=== PATIENT | male | born 1960 | race Caucasian/White ===

== ENCOUNTER → 2017-06-26 | Outpatient (CLI) | payer BC ==
[~2017-06-26] MED LIST: ASPI81TA28 PO; CLR10 PO; IPRA0.037; NADO40TA20 PO; VITBC PO
--- NOTE | 2017-06-26 11:32 | DIAGNOSTIC IMAGING REPORT ---
CHEST 2 VIEWS ROUTINE CLINICAL HISTORY: Atypical chest pain. Shortness of breath. COMPARISON STUDY: 04/08/2013 FINDINGS: The cardiac and mediastinal contours are normal. There is no evidence of focal pulmonary consolidation. There is no evidence of failure. No pleural effusions are visualized.[ There is a subtle 8 mm opacity at the left apex, overlying the clavicle and left first rib. While nonspecific, one would favor this representing a summation or postinflammatory density. A three-month follow-up chest x-ray with an apical lordotic view is recommended. IMPRESSION: 8 mm opacity at the left lung apex, likely representing a summation or postinflammatory density. A three-month follow-up chest x-ray with an apical lordotic view is recommended. Electronically signed by: Mario Merrill M.D. 06/26/2017 11:31 AM Dictated Date/Time: 06/26/2017 11:28 AM
== END | disposition home or self-care (01) ==
LOC: C.RADBC 11:13
PROVIDERS: ATTEND Internal Medicine Geriatric Medicine
DX: I47.1 Supraventricular tachycardia (principal); R06.02 Shortness of breath; R07.9 Chest pain, unspecified; Z86.79 Personal history of other diseases of the circulatory system; R91.8 Other nonspecific abnormal finding of lung field

== ENCOUNTER → 2017-09-03 | Outpatient (CLI) | payer OTHER ==
--- NOTE | 2017-09-03 09:04 | DIAGNOSTIC IMAGING REPORT ---
ABDOMEN FOR HERNIA CLINICAL HISTORY: Right inguinal hernia. COMPARISON STUDY: No previous studies for comparison. FINDINGS: Sonography of the right inguinal region demonstrated a reducible fat-containing right inguinal hernia. IMPRESSION: Reducible fat-containing right inguinal hernia. Electronically signed by: Jun Mcmanus M.D. 09/03/2017 9:03 AM Dictated Date/Time: 09/03/2017 9:03 AM
--- NOTE | 2017-09-03 09:06 | DIAGNOSTIC IMAGING REPORT ---
ULTRASOUND TESTES AND SCROTUM CLINICAL HISTORY: Testicular pain. COMPARISON STUDY: No priors. TECHNIQUE: Real-time, grayscale, and color Doppler sonography of the testes and scrotum is performed. Images are reviewed in the transverse and longitudinal planes. FINDINGS: The testes are normal in size and homogeneous in echotexture. The right testis measures 5.6 x 2.1 x 3.4 cm and the left testis measures 5.5 x 2.1 x 3.1 cm. No intratesticular mass is seen. Testicular blood flow is normal and symmetric. Normal Doppler waveforms are identified in both testes. The epididymal heads are normal in appearance. The right epididymal head measures 1.1 cm in length and the left epididymal head measures 1.0 cm in length. No varicocele or hydrocele is seen. IMPRESSION: Unremarkable sonographic assessment of the testes and scrotum. Electronically signed by: Torsten Lewis M.D. 09/03/2017 9:04 AM Dictated Date/Time: 09/03/2017 9:03 AM
== END | disposition home or self-care (01) ==
LOC: C.ULTRBC 08:23
PROVIDERS: ATTEND Internal Medicine Geriatric Medicine
DX: K40.90 Unilateral inguinal hernia, without obstruction or gangrene, not specified as recurrent (principal); N50.819 Testicular pain, unspecified

== ENCOUNTER → 2017-11-30 | Outpatient (CLI) | payer OTHER ==
--- NOTE | 2017-11-30 11:16 | DIAGNOSTIC IMAGING REPORT ---
CHEST-PA, LAT, APICAL LORDOTIC HISTORY: Abnormal chest x-ray. R93.8 Abnormal finding on imaging COMPARISON: Chest 06/26/2017. FINDINGS: The left apical nodular density seen on the prior study is no longer visualized. No focal lung consolidations to suggest pneumonia. No evidence for pulmonary edema. The heart is normal in size. No pleural effusions. No pneumothorax. IMPRESSION: The left apical nodular density seen on the prior study is no longer visualized. Electronically signed by: Baldev Blake M.D. 11/30/2017 11:14 AM Dictated Date/Time: 11/30/2017 11:12 AM
== END | disposition home or self-care (01) ==
LOC: C.RADBC 10:40
PROVIDERS: ATTEND Internal Medicine Geriatric Medicine
DX: R93.8 Abnormal findings on diagnostic imaging of other specified body structures (principal)

== ENCOUNTER → 2018-02-21 | Day surgery (SDC) | payer OTHER ==
[2018-02-12 10:47] VITALS: Ht 177.8 cm; Wt 86.4 kg
--- NOTE | 2018-02-20 14:16 | History and Physical: Surg Cnt ---
History & Physical Date Feb 20, 2018. Chief Complaint sinus infections History of Present Illness The patient is a 57 year old male with complaints of chronic sinusitis Additional History Hepatic Disease: No Endocrine Disorder: No Kidney Disease: No Hypertension: Yes Heart Disease: No Bleeding Tendencies: No Infectious Diseases: No Allergies Coded Allergies: No Known Allergies (Verified , 02/12/18) Home Medications Scheduled Aspirin (Aspirin Chewable), 81 MG PO QAM B-Complex Vitamins (Vitamin B Complex), 1 TAB PO DAILY Cholecalciferol (Vitamin D), 1 CAP PO DAILY Ipratropium [place] (Nasal) (Ipratropium [place]), 1 SPRAY STEPHANI QAM Loratadine (Claritin), 10 MG PO QAM Losartan Potassium (Cozaar), 50 MG PO QAM Meloxicam (Mobic), 1-2 TAB PO QAM Nadolol (Corgard), 1.5 TAB PO QAM Pravastatin (Pravachol ), 20 MG PO QPM [Vitamin C], 1 TAB PO DAILY Scheduled PRN Clonazepam (Klonopin), 0.5 MG PO DAILY PRN for PRN Physical Examination Skin: warm/dry, no rash Eyes: normal inspection, EOMI, sclerae normal ENT: normal ENT inspection, pharynx normal Head: normocephalic, atraumatic Neck: supple, no adenopathy, trachea midline Respiratory/Chest: lungs clear, normal breath sounds, no respiratory distress Cardiovascular: regular rate, rhythm, no edema, no murmur Abdomen / GI: normal bowel sounds, non tender Back: normal inspection Extremities: normal inspection, normal range of motion Neurologic/Psych: no motor/sensory deficits, alert, normal reflexes, oriented x 3 Diagnosis chronic sinusitis Plan of Treatment endoscopic sinus surgery
[~2018-02-21] VITALS: Ht 177.8 cm; Wt 86.4 kg
[~2018-02-21] MED LIST changes: +ASPCH81X PO; -ASPI81TA28 PO; +ATROPINE SULFATE 0.1 MG/ML 5ML SYR IV PRN; +B-COTAB18 PO; +CEFAZOLIN 2000MG IV PUSH 15 ML IV SCH; +CHOL200010 PO; +DEXAMETHASONE SOD INJ 4 MG/ML VIAL ONE; +EpHEDrine SULFATE INJ 50 MG/ML AMP IV PRN; +EpHEDrine SULFATE INJ 50 MG/ML AMP ONE; +EpINEphrine INJ 1MG/ML AMP 1 MG/ML AMP ONE; +FENTANYL CITRATE INJ 50 MCG/1 ML 2 ML VIAL IV PRN; +FENTANYL CITRATE INJ 50 MCG/1 ML 2 ML VIAL ONE; +GELATIN SPONGE 12-7MM ONE; -IPRA0.037; +IPRA0.06 NAE; +KLN/5 PO; +LACTATED RINGER'S 1000ML 1,000 ML IV SCH; +LIDO 2%/EPINEPHRINE 1:100000 20 ML VIAL ONE; +LIDOCAINE 4% MPF SOAK 5 ML = 1 DOSE ONE; +LIDOCAINE HCL 2% 2 ML VIAL (20MG/ML) ONE; +LOSA50TA6 PO; +MELO7.5T5 PO; +MIDAZOLAM HCL 1 MG/ML 2ML VIAL ONE; +NADO40TA PO; -NADO40TA20 PO; +ONDANSETRON INJ 2 MG/ML 2 ML VIAL IV PRN; +ONDANSETRON INJ 2 MG/ML 2 ML VIAL ONE; +OXYC-57 PO; +OXYCODONE/ACETAMINOPHEN 5-325 TAB PO PRN; +PRAV20TA PO; +PROPOFOL IV EMULSION 10 MG/ML 20 ML VIAL ONE; +SODIUM CHLORIDE 0.9% 1000ML 1,000 ML IV SCH; +VITAMIN C PO; -VITBC PO
--- NOTE | 2018-02-21 09:01 | History & Physical Bridge Note ---
H&P Re-Evaluation Bridge Note: I have examined the patient, reviewed the History & Physical and in the interval since the performance of the History & Physical I have noted the following changes of clinical significance: No changes noted
--- NOTE | 2018-02-21 11:57 | [facility] Post Operative Brief Note ---
Immediate Operative Summary Operative Date Feb 21, 2018. Pre-Operative Diagnosis Chronic sinusitis Post-Operative Diagnosis same as preop Procedure(s) Performed Endoscopic Sinus Surgery to include left and right frontal, left and right maxillary, and left and right total ethmoidectomies Surgeon Dr. Hernandez Ladle Builder Surgeon(s) None Estimated Blood Loss 100 mL Findings Consistent with Post-Op Diagnosis Specimens None Drains None Anesthesia Type General Complication(s) none Disposition Accompanied Pt To Recover: yes Disposition: Recovery Room / PACU Overlapping Procedure I was present for: the critical portions of procedure. I was immediately available: during the entire case
--- NOTE | 2018-02-21 11:59 | Discharge Instructions-SurgCtr ---
Discharge Instructions Date of Service Feb 21, 2018. Visit Reason for Visit: Chronic Sinusitis Discharge Discharge Diagnosis / Problem: same Discharge Goals Goal(s): Improve function, Improve disease control, Therapeutic intervention Activity Recommendations Activity Limitations: per Instructions/Follow-up section Anesthesia . Post Anesthesia Instructions: If you have had General Anesthesia or IV Sedation: * Do not drive today. * Resume driving when surgeon permits. * Do not make important decisions or sign legal documents today. * Call surgeon for: 1. Temperature elevations greater than 101 degrees F. 2. Uncontrollable pain. 3. Excessive bleeding. 4. Persistent nausea and vomiting. 5. Medication intolerance (nausea, vomiting or rash). * For nausea and vomiting use only clear liquids such as: tea, soda, bouillon until nausea subsides, then gradually increase diet as tolerated. * If you have any concerns or questions, call your surgeon's office. If physician is unavailable and it is an emergency, call 911 or go to the nearest emergency room. . Instructions / Follow-Up Instructions / Follow-Up ACTIVITY RECOMMENDATIONS: * Being up and around is good, but no strenuous activity, heavy lifting or physical exertion for one week. * Keep your head elevated 30 degrees when lying down or sleeping. * Do not blow your nose for 48 hours, sniff back instead. * Avoid hot showers. OVER THE COUNTER MEDICATIONS: * You may use Tylenol * Avoid aspirin or aspirin containing products, e.g. as they may increase bleeding. SPECIAL CARE INSTRUCTIONS: * Expect to have bloody drainage from your nose and/or down your throat for one to three days. Change drip pad as needed. * Begin irrigating your nose with saline solution today, at least six to ten times per day and sniff back to help remove old clots or crust. * You may experience nasal and facial congestion, pain and pressure, this is normal. * Please call with any significant and/or progressive pain, redness, swelling around the eyes, visual changes, fever of 101.5 degrees F, active bleeding or any problems or concerns. * If active bleeding occurs, spray the nose three times at one minute intervals with Afrin spray and call or cell phone: . If unable to reach the doctor, go to the nearest Emergency Department. Special Diet: * Avoid extremely hot fluids. FOLLOW UP VISIT: Follow-up Visit with Dr. Hernandez If not already scheduled, please call to schedule. Diet Recommendations Home Diet: no limitations Procedures Procedures Performed: Endoscopic Sinus Surgery to include left and right frontal, left and right maxillary, and left and right total ethmoidectomies Pending Studies Studies pending at discharge: no Medical Emergencies . Who to Call and When: Medical Emergencies: If at any time you feel your situation is an emergency, please call 911 immediately. . Non-Emergent Contact Non-Emergency issues call your: Primary Care Provider . . "Provider Documentation" section prepared by Moriah Hernandez. . [place] Drug Monitoring Program Search Results: no issues identified
--- NOTE | 2018-02-21 12:43 | Anesthesia Progress Nt - [facility] ---
Anesthesia Post Op Note Date & Time Feb 21, 2018 at 12:43 Vital Signs Pain Intensity: 0 Vital Signs Past 12 Hours Date Time Temp Pulse Resp B/P (MAP) Pulse Ox O2 Delivery O2 Flow Rate FiO2 02/21/18 12:31 36.4 02/21/18 12:30 127/90 (102) 02/21/18 12:27 69 16 94 02/21/18 12:27 70 16 02/21/18 12:25 126/87 (93) 02/21/18 12:22 68 18 02/21/18 12:22 67 18 98 02/21/18 12:21 Room Air 02/21/18 12:20 128/77 (95) 02/21/18 12:17 63 17 97 02/21/18 12:17 63 17 02/21/18 12:15 110/68 (75) 02/21/18 12:12 61 14 02/21/18 12:12 61 14 97 02/21/18 12:10 104/65 (74) 02/21/18 12:07 62 14 98 02/21/18 12:07 62 14 02/21/18 12:05 105/65 (76) 02/21/18 12:02 64 15 97 02/21/18 12:02 64 15 02/21/18 12:00 106/67 (74) 02/21/18 11:59 101/65 (75) 02/21/18 11:57 36.1 66 12 101/65 96 Humidified Oxygen 5 Diffusion Mask 02/21/18 09:48 36.6 55 14 126/88 (101) 97 Room Air Notes Mental Status: alert / awake / arousable, participated in evaluation Pt Amnestic to Procedure: Yes Nausea / Vomiting: adequately controlled Pain: adequately controlled Airway Patency, RR, SpO2: stable & adequate BP & HR: stable & adequate Hydration State: stable & adequate Anesthetic Complications: no major complications apparent
[2018-02-21 13:14] VITALS: TEMP 36.5
[2018-02-21 13:49] VITALS: BP 119/77; PULSE 64; O2SAT 97
--- NOTE | 2018-02-21 17:53 | OPERATIVE REPORT ---
DATE OF OPERATION: 02/21/2018 PREOPERATIVE DIAGNOSIS: Chronic sinusitis. HISTORY: This 57-year-old gentleman underwent endoscopic sinus surgery [address] Sherman, developed recurrent chronic sinusitis which has become progressively worse over the last several years, found to have pansinusitis on CT scan. PROCEDURE: The patient brought to the operating room and placed in supine position. General anesthesia was induced using the LMA. He was prepped and draped in the usual sterile manner for sinus surgery. The BrainLAB device was calibrated and used for the entire procedure. The adhesions lateralized both middle turbinates blocking the middle meatus and the maxillary sinuses. The right maxillary sinus was cannulated with guidewire and dilated using 6 mm balloon as was the left maxillary sinus. The right nasal frontal duct was cannulated with guidewire and dilated using the 6 mm balloon with BrainLAB computer guidance. The guidewire was left in place as a marker as the catheter was withdrawn. Frontal sinusotomy was performed by coupling the shaver with the BrainLAB device, removing the anterior wall and the posterior wall of the agger nasi cell, opening up the nasofrontal duct. At this point, total ethmoidectomy was performed lysing the adhesions from the residual middle turbinate laterally opening up the anterior ethmoids, and then further cutting the adhesions posteriorly to open up the posterior ethmoid. The BrainLAB device was used to delineate the skull base and lamina papyracea. These structures were followed anteriorly exonerating all the posterior and all the anterior ethmoid air cells which were filled with polyps and adhesions. This was continued anteriorly so that all the ethmoids were exonerated up to the previously dilated nasofrontal duct. The maxillary sinus was opened and irrigated clean with saline. The left frontal sinusotomy, total ethmoidectomy, and maxillary sinus antrostomy was performed in a similar manner. The Contour stents were placed in the nasofrontal duct area and the Propel stents were placed in the middle meatus area on both sides. The patient tolerated the procedure well and was taken to recovery area in satisfactory condition. I attest to the content of the Intraoperative Record and any orders documented therein. Any exception s are noted below.
== END | disposition home or self-care (01) ==
LOC: X.SURG 09:02
PROVIDERS: ATTEND Otolaryngology
DX: J32.9 Chronic sinusitis, unspecified (principal); I10 Essential (primary) hypertension; E78.5 Hyperlipidemia, unspecified; I48.91 Unspecified atrial fibrillation; I47.1 Supraventricular tachycardia; Z79.82 Long term (current) use of aspirin
CPT/HCPCS: 31253; 31256; 61782; S1090

== ENCOUNTER 2025-07-11 21:55 | Inpatient (IN) ==
[2025-07-11] MEDS: SODIUM CHLORIDE 0.9% 500 ML IV ONE (22:10)
--- NOTE | 2025-07-11 22:17 | Emergency Department Note ---
History of Present Illness General Chief complaint: Arrhythmia/Palpitations Stated complaint: A-FIB History of Present Illness 65-year-old male presents the ER complaining of feeling like he is in A-fib. Last episode was greater than 10 years ago. He is currently on nadolol and follows with Dr. Wallis from [facility] cardiology. Patient states that around 1999 when he was watching the news he felt like the symptoms started. No increased caffeine or alcohol today. No new stressors. Patient denies chest pain, dyspnea, fever, chills, flulike illness. Home Medications Medication Instructions Recorded Confirmed Type aspirin 81 mg tablet,delayed 81 mg PO QAM 06/20/18 07/11/25 History release (Gurjit Low Dose Aspirin) cholecalciferol (vitamin D3) 50 2,000 unit PO QAM 06/20/18 07/11/25 History mcg (2,000 unit) tablet (Vitamin D3) ipratropium bromide 21 mcg (0.03 2 spray intranasal TID 06/20/18 07/11/25 History %) nasal spray loratadine 10 mg tablet 10 mg PO QAM 06/20/18 07/11/25 History nadolol 40 mg tablet 60 mg PO DAILY 06/20/18 07/11/25 History vitamin B complex 1 tab PO QAM 06/20/18 07/11/25 History losartan 50 mg tablet 50 mg PO QAM #90 tabs 03/05/19 07/11/25 Rx coenzyme Q10 100 mg capsule 100 mg PO DAILY 07/11/25 07/11/25 History garlic 1,000 mg capsule 1,000 mg PO DAILY 07/11/25 07/11/25 History icosapent ethyl 0.5 gram capsule 1 g PO BIDM 07/11/25 07/11/25 History meloxicam 7.5 mg tablet 7.5 - 15 mg PO DAILY PRN Severe 07/11/25 07/11/25 History Pain (Scale Score 7-10) rosuvastatin 5 mg tablet 5 mg PO 4XWK 07/11/25 07/11/25 History trazodone 50 mg tablet 75 mg PO HS 07/11/25 07/11/25 History Allergies Allergy/AdvReac Type Severity Reaction Status Date / Time pollen extracts Allergy Mild RUNNY NOSE Verified 07/11/25 22:51 doxycycline AdvReac Severe sun Verified 07/11/25 22:51 sensative amoxicillin AdvReac Intermediate GI SYMPTOMS Verified 07/11/25 22:51 atorvastatin AdvReac Intermediate NAUSEA/VOMI Verified 07/11/25 22:51 TING pravastatin AdvReac Intermediate NAUSEA/VOMI Verified 07/11/25 22:51 TING sulfamethoxazole AdvReac Intermediate GI SYMPTOMS Verified 07/11/25 22:51 trimethoprim AdvReac Intermediate GI SYMPTOMS Verified 07/11/25 22:51 Past Med/Surg History Problem List (Updated 07/11/25 @ 23:51 by Elisa Ovlera PA-C) Atrial fibrillation with rapid ventricular response (Acute) Encounter for pre-operative examination Seasonal allergies Hypertension Afib PSVT (paroxysmal supraventricular tachycardia) High cholesterol Migraine several per month - typical are visual, but occassionally get headache Hx of sinus surgery x2 Hx of fracture left arm as child Hx of wisdom tooth extraction Hx of colonoscopy Inguinal hernia Chronic sinusitis Family History (Updated 06/20/18 @ 08:49 by Dunia Mishra RN) Father Family history of diabetes mellitus Social History Smoking Status: Never smoker Do You Dip or Chew Tobacco: No; Hx Alcohol Use: Yes Hx Substance Use: No Preferred Language: Fijian Communication Ability: Effective Beliefs That Will Affect Care: None Current Living Situation: Spouse Feels Safe at Home: Yes Assistive Devices: Glasses Review of Systems A total of 10 systems reviewed and were otherwise negative Physical Exam Vital Signs Vital Signs - 24 hr 07/11/25 21:58 07/11/25 22:02 07/11/25 22:03 Temperature 36.6 C Temperature Source Temporal Artery Scan Pulse Rate 114 H 113 H 123 H Pulse Rate from SpO2 Sensor Respiratory Rate 18 18 Respiratory Effort / Characteristics Non-Labored Spontaneous Respiratory Depth Normal Respiratory Pattern Regular Blood Pressure 146/89 H 151/107 H Blood Pressure Mean 108 121 Blood Pressure Position Sitting Pulse Oximetry 97 98 Oxygen Delivery Method Room Air Room Air Sepsis Recent Fever Within 48 Hours No Sepsis New/Unexplained Change in Mental Status N/A Sepsis Action Taken by Nursing No Action Required 07/11/25 22:11 07/11/25 22:12 07/11/25 22:15 Temperature Temperature Source Pulse Rate 66 73 81 Pulse Rate from SpO2 Sensor 79 Respiratory Rate 23 21 Respiratory Effort / Characteristics Respiratory Depth Respiratory Pattern Blood Pressure 118/68 118/68 Blood Pressure Mean 84 84 Blood Pressure Position Pulse Oximetry 98 97 Oxygen Delivery Method Room Air Sepsis Recent Fever Within 48 Hours Sepsis New/Unexplained Change in Mental Status Sepsis Action Taken by Nursing 07/11/25 23:00 07/11/25 23:30 Temperature Temperature Source Pulse Rate 74 85 Pulse Rate from SpO2 Sensor Respiratory Rate 16 24 Respiratory Effort / Characteristics Respiratory Depth Respiratory Pattern Blood Pressure 111/69 117/62 Blood Pressure Mean 83 80 Blood Pressure Position Pulse Oximetry 97 96 Oxygen Delivery Method Room Air Room Air Sepsis Recent Fever Within 48 Hours Sepsis New/Unexplained Change in Mental Status Sepsis Action Taken by Nursing VITALS: Vitals are noted on the nurse's note and reviewed by myself. Vital signs tachycardic. GENERAL: Pleasant male with present, in no acute distress, nondiaphoretic, well-developed well-nourished. SKIN: Capillary reflex less than 2 seconds. HEENT: Normocephalic. PERRLA. EOMI. Nares patent. Mucous membranes moist. Neck is supple without nuchal rigidity. HEART: Irregularly irregular rate and rhythm LUNGS: Clear to auscultation bilaterally without wheezes, rales or rhonchi. No retractions or accessory muscle use. ABDOMEN: Positive bowel sounds x 4. Normal tympanic percussion. Soft, nontender, without masses or organomegaly. Borjas sign negative. No guarding or rebound tenderness. no CVA tenderness MUSCULOSKELETAL: No gross musculoskeletal defects. NEURO: Patient was alert and oriented to person place and time. No focal neurological deficits. Course Administered Medications Discontinued Medications Diltiazem HCl (Diltiazem Hcl 5 Mg/Ml 5 Ml Vial) 20 mg IV NOW STA Stop: 07/11/25 22:07 Last Admin: 07/11/25 22:10 Dose: 20 mg Documented By: RACHAEL Co-signed By: GAURANG Sodium Chloride (Nss) 500 mls @ 999 mls/hr IV .Q31M ONE Stop: 07/11/25 22:38 Last Infusion: 07/11/25 22:41 Dose: Infused Documented By: Admin: 07/11/25 22:10 Dose: 999 mls/hr Documented By: RACHAEL Critical Care Time Critical Care Time: Yes Total Critical Care Time: 35 I have personally spent 35 minutes of critical care time in the direct management of this patient. This includes bedside care, interpretation of diagnostic studies, and testing, discussion with consultants, patient, and family members, and other required patient management activities. This 35 minutes is in excess of all separately billable procedures. Medical Decision Making Medical Records Attestation: I reviewed the patient's medical records. Home Medications Current Medication List: was personally reviewed by me Laboratory Data Attestation: I reviewed the patient's lab results. 07/11/25 22:05 07/11/25 22:05 Lab Results 07/11/25 Range/Units 22:05 WBC 9.85 (4.8-10.8) K/ul RBC 4.74 (4.70-6.10) M/uL Hgb 16.0 (14.0-18.0) g/dL Hct 43.3 (42.0-52.0) % MCV 91.4 (80.0-100.0) fL MCH 33.8 (25.0-34.0) pg MCHC 37.0 H (32.0-36.0) g/dL RDW Std Deviation 45.7 (36.4-46.3) fL RDW Coeff of [place]rem[place] 13.4 (11.5-14.5) % Plt Count 220 (130-400) K/uL MPV 10.5 (9.4-12.4) fL Immature Gran % (Auto) 0.4 % Neut % (Auto) 49.0 % Lymph % (Auto) 40.6 % Cooper % (Auto) 7.4 % Eos % (Auto) 2.1 % Baso % (Auto) 0.5 % Neut # (Auto) 4.82 (1.40-6.50) K/uL Lymph # (Auto) 4.00 H (1.20-3.40) K/uL Cooper # (Auto) 0.73 H (0.11-0.59) K/uL Eos # (Auto) 0.21 (0.00-0.50) K/uL Baso # (Auto) 0.05 (0.00-0.20) K/uL Immature Gran # (Auto) 0.04 (0.01-0.20) K/uL PT 10.7 (9.0-12.0) Seconds INR 1.0 (0.9-1.1) APTT 25 (21-31) Seconds PTT Ratio 0.9 Sodium 138 (136-145) mmol/L Potassium 4.3 (3.5-5.1) mmol/L Chloride 104 (98-107) mmol/L Carbon Dioxide 27 (21-32) mmol/L Anion Gap 7 (3-11) BUN 18 (6-23) mg/dl Creatinine 1.17 (0.6-1.4) mg/dl Est Cr Clr Drug Dosing 66.7 ml/min eGFR 70.05 BUN/Creatinine Ratio 15.4 (10-20) Glucose 122 H (70-99(Fasting)) mg/dl Calcium 9.2 (8.6-10.3) mg/dl Magnesium 2.2 (1.7-2.4) mg/dl Total Bilirubin 2.6 H (0.2-1.0) mg/dl AST 33 (13-39) U/L ALT 31 (7-52) U/L Alkaline Phosphatase 63 (34-104) U/L Troponin I High Sens 4.9 (0-20) pg/ml Total Protein 7.3 (6.0-8.3) gm/dl Albumin 4.7 (3.4-5.0) gm/dl Globulin 2.6 (2.5-4.0) gm/dl Albumin/Globulin Ratio 1.8 (0.9-2) TSH 3.824 (0.300-4.500) uIu/ml Imaging Data Attestation: I personally reviewed and interpreted this imaging study as follows: MDM Narrative Prior records/ancillary studies reviewed. Triage Nursing notes reviewed. Additional history obtained from family. The patient's history was concerning for palpitations. Differential diagnosis: Etiologies such as premature contractions, electrolyte abnormality, cardiac dysrhythmia, thyroid dysfunction, pulmonary embolism, infection, gastrointestinal, as well as others were entertained. Physical examination: Benign as above. ER treatment provided: Cardizem, IV fluids On reassessment the patient felt better. Diagnostic interpretation by me: An order was placed for continuous cardiac monitoring. The monitor shows a rate of 60-150 with a A-fib rhythm per my interpretation. The electrocardiogram was ordered for palpitaions ECG: Ordered for tachycardia EKG: Irregularly irregular with no acute ST-T wave changes, rate 118. Impression A-fib RVR independently interpreted by myself The labs Independently Interpreted by myself revealed stable H&H, euthyroid, negative troponin CHADS2 Score Sex (male 0, female 1): 0 Congestive HF (1): 0 Hypertension (1) :1 Age <65 (0); 65-74 (1); >75 years (1) :0 Diabetes mellitus (1):0 Stroke/TIA/TE (2): 0 Vascular disease (prior AR, PAD, Aortic plaque) (1): 0 Score: 1 CHADS2: Risk of Ischemic Stroke; Risk of stroke/TIA/systemic embolism 0: 02.%; 0.3% 1: 0.6%; 0.9% 2: 2.2%; 2.9% 3: 3.2%; 4.6% 4: 4.8%; 6.7% 5: 7.2%; 10% 6: 9.7%; 13.6% 7: 11.2%; 15.7% 8: 10.8%; 15.2% 9: 12.2%; 17.4% Consultation: A consultation was placed with the hospitalist. The case was discussed and diagnostics were reviewed. The patient was evaluated in the ER for further treatment. This appears to be consistent with A-fib with RVR. CHADS2 score is 1. He is currently only on aspirin. Heart rate came down but he still is in A-fib. Medicine was consulted and case was discussed. He will be evaluated for admission. Patient is agreeable. By the evaluation outlined above emergent etiologies such as electrolyte abnormality, thyroid dysfunction, pulmonary embolism, infection, as well as others were deemed relatively unlikely. The pt informed about the findings as listed above. All questions were answered and pleased with the treatment. The chart was completed utilizing [employer] Speech voice recognition software. Grammatical errors, random word insertions, pronoun errors, and incomplete sentences are an occassional consequence of this system due to software limitations, ambient noise, and hardware issues. Any formal questions or concerns about the content, text, or information contained within the body of this dictation should be directly addressed to the physician assistant professor of mathematics for clarification. Impression & Plan Atrial fibrillation with rapid ventricular response Discharge Plan Visit Data Chief Complaint: Arrhythmia/Palpitations Stated Complaint: A-FIB ED Provider: Severino Gutierrez ED Midlevel Provider: Elisa Olvera Discharge Problem: Atrial fibrillation with rapid ventricular response Patient Disposition: Admitted As Inpatient Condition: Good Forms Stand Alone Forms: My [facility] Prescriptions Prescriptions: No Action losartan 50 mg tablet 50 mg PO QAM Qty: 90 3RF aspirin [Gurjit Low Dose Aspirin] 81 mg Tablet,Delayed Release (Dr/Ec) 81 mg PO QAM vitamin B complex Tablet 1 tab PO QAM ipratropium bromide 0.03 % [place],Non-Aerosol 2 spray INTRANASAL TID cholecalciferol (vitamin D3) [Vitamin D3] 2,000 unit Tablet 2,000 unit PO QAM loratadine 10 mg Tablet 10 mg PO QAM nadolol 40 mg Tablet 60 mg PO DAILY trazodone 50 mg tablet 75 mg PO HS meloxicam 7.5 mg tablet 7.5 - 15 mg PO DAILY PRN (Reason: Severe Pain (Scale Score 7-10)) garlic 1,000 mg Capsule 1,000 mg PO DAILY coenzyme Q10 [CoQ-10] 100 mg Capsule 100 mg PO DAILY rosuvastatin 5 mg tablet 5 mg PO 4XWK icosapent ethyl 0.5 gram capsule 1 g PO BIDM Referrals Referrals: Gary Krueger MD [Primary Care Provider] -
[2025-07-11 22:22] LABS: Hematocrit (blood only) 43.3 % (42.0-52.0); Hemoglobin 16.0 g/dL (14.0-18.0); Immature Granulocytes # (auto) 0.04 K/uL (0.01-0.20); Immature Granulocytes % (auto) 0.4 %; Mean Corpuscular Hemoglobin 33.8 pg (25.0-34.0); Mean Corpuscular Volume 91.4 fL (80.0-100.0); Platelet Count 220 K/uL (130-400); RDW Standard Deviation 45.7 fL (36.4-46.3); Red Blood Count 4.74 M/uL (4.70-6.10); White Blood Count 9.85 K/ul (4.8-10.8)
[2025-07-11 22:42] LABS: Alanine Aminotransferase 31.0 U/L (7-52); Albumin Globulin Ratio 1.8 (0.9-2); Albumin Level 4.7 gm/dl (3.4-5.0); Alkaline Phosphatase 63.0 U/L (34-104); Anion Gap 7.0 (3-11); Bilirubin,Total 2.6 mg/dl (0.2-1.0); Blood Urea Nitrogen 18.0 mg/dl (6-23); Calcium 9.2 mg/dl (8.6-10.3); Carbon Dioxide 27.0 mmol/L (21-32); Chloride 104.0 mmol/L (98-107); Creatinine Clr Calc Pharmacy 66.7 ml/min; Globulin 2.6 gm/dl (2.5-4.0); Glucose 122.0 mg/dl (70-99(Fasting)); Magnesium 2.2 mg/dl (1.7-2.4); Potassium 4.3 mmol/L (3.5-5.1); Sodium 138.0 mmol/L (136-145); Total Protein 7.3 gm/dl (6.0-8.3)
[2025-07-11 22:58] LABS: Thyroid Stimulating Hormone 3.824 uIu/ml (0.300-4.500)
[2025-07-11 23:22] LABS: INR 1.0 (0.9-1.1); Partial Thromboplastin Time 25 Seconds (21-31); Prothrombin Time 10.7 Seconds (9.0-12.0)
[2025-07-11] MEDS ORDERED: ALUMINUM/MAGNESIUM SUSP 30 ML UDC PO PRN (23:46)
--- NOTE | 2025-07-11 23:58 | History & Physical Report ---
Date of Service July 11, 2025 Assessment & Plan (1) Atrial fibrillation with rapid ventricular response: Plan: Assessment/plan A-fib with RVR Patient presents with palpitation. Remote history of A-fib in 2022. History of PSVT EKG on admission shows atrial fibrillation with RVR; was given Cardizem in the ED. [id number] score of 1(secondary to hypertension) Plan to start metoprolol tartrate 25 mg every 6 hours; hold home nadolol. Obtain echocardiogram. Continue aspirin given [id number] score of 1; will appreciate cardiology input regarding long-term anticoagulation and medication recommendation. Continue telemonitoring Hyperlipidemiacontinue on rosuvastatin 5 mg 4 days a week. Hypertensioncontinue losartan. Hold nadolol Gilbert syndrome- mild elevation on bilirubin noted. monitor Full code DVT lovenox Time spent evaluating patient, direct bedside care, chart review, placing orders, interpretation of diagnostic studies, discussion with consultants, patient, and family members, as well as other required patient management activities is 75 minutes Please note the above document was generated using voice recognition software. It may contain grammatical, syntax or spelling errors. Any formal questions or concerns about the content, text or information contained within the body of this dictation should be directly addressed to the provider for clarification History of Present Illness Chief Complaint: Palpitation for 1 day Primary Care Provider: Gary Krueger MD History obtained from chart review, interview with the patient and discussion with ED provider Past medical history include hyperlipidemia, paroxysmal A-fib, PSVT, hypertension, restless leg syndrome, hypertension, gilbert disease He has remote history of atrial fibrillation; in 2022. Patient presented to the hospital with palpitation. He reports that around 8 PM, he started to have palpitation. He denies any chest pain, shortness of breath, dizziness, fever, chills no changes in his medication. Last outpatient EKG from January 2025shows sinus bradycardia with rate of 53. No recent echo seen On presentation to the ED, he was normotensive, tachycardic, saturating well on room air. EKG on admission showed atrial fibrillation with RVR. Patient was given Cardizem 20 mg which slowed the ventricular rate down to 70s; was referred to admission Allergies Allergy/AdvReac Type Severity Reaction Status Date / Time pollen extracts Allergy Mild RUNNY NOSE Verified 07/11/25 22:51 doxycycline AdvReac Severe sun Verified 07/11/25 22:51 sensative amoxicillin AdvReac Intermediate GI SYMPTOMS Verified 07/11/25 22:51 atorvastatin AdvReac Intermediate NAUSEA/VOMI Verified 07/11/25 22:51 TING pravastatin AdvReac Intermediate NAUSEA/VOMI Verified 07/11/25 22:51 TING sulfamethoxazole AdvReac Intermediate GI SYMPTOMS Verified 07/11/25 22:51 trimethoprim AdvReac Intermediate GI SYMPTOMS Verified 07/11/25 22:51 Home Medications Medication Instructions Recorded Confirmed Type aspirin 81 mg tablet,delayed 81 mg PO QAM 06/20/18 07/11/25 History release (Gurjit Low Dose Aspirin) cholecalciferol (vitamin D3) 50 2,000 unit PO QAM 06/20/18 07/11/25 History mcg (2,000 unit) tablet (Vitamin D3) ipratropium bromide 21 mcg (0.03 2 spray intranasal TID 06/20/18 07/11/25 History %) nasal spray loratadine 10 mg tablet 10 mg PO QAM 06/20/18 07/11/25 History nadolol 40 mg tablet 60 mg PO DAILY 06/20/18 07/11/25 History vitamin B complex 1 tab PO QAM 06/20/18 07/11/25 History losartan 50 mg tablet 50 mg PO QAM #90 tabs 03/05/19 07/11/25 Rx coenzyme Q10 100 mg capsule 100 mg PO DAILY 07/11/25 07/11/25 History garlic 1,000 mg capsule 1,000 mg PO DAILY 07/11/25 07/11/25 History icosapent ethyl 0.5 gram capsule 1 g PO BIDM 07/11/25 07/11/25 History meloxicam 7.5 mg tablet 7.5 - 15 mg PO DAILY PRN Severe 07/11/25 07/11/25 History Pain (Scale Score 7-10) rosuvastatin 5 mg tablet 5 mg PO 4XWK 07/11/25 07/11/25 History trazodone 50 mg tablet 75 mg PO HS 07/11/25 07/11/25 History Past Med/Surg History Problem List (Updated 07/11/25 @ 23:51 by Elisa Olvera PA-C) Atrial fibrillation with rapid ventricular response (Acute) Encounter for pre-operative examination Seasonal allergies Hypertension Afib PSVT (paroxysmal supraventricular tachycardia) High cholesterol Migraine several per month - typical are visual, but occassionally get headache Hx of sinus surgery x2 Hx of fracture left arm as child Hx of wisdom tooth extraction Hx of colonoscopy Inguinal hernia Chronic sinusitis Family History (Updated 06/20/18 @ 08:49 by Dunia Mishra RN) Father Family history of diabetes mellitus Social History Smoking Status: Never smoker Do You Dip or Chew Tobacco: No; Hx Alcohol Use: Yes Hx Substance Use: No Preferred Language: Sudanese Communication Ability: Effective Beliefs That Will Affect Care: None Current Living Situation: Spouse Feels Safe at Home: Yes Assistive Devices: Glasses Review of Systems Review of Systems: All systems reviewed & are unremarkable except as noted in Subjective Physical Exam Physical Exam: On physical examination; Constitutional: WD/WN, vitals as above, NAD, sitting up in bed, pleasant, conversing easily Respiratory: normal respiratory effort, lungs clear to auscultation, no wheeze, rales, rhonchi. Normal insp/exp effort, no accessory muscle use Cardiovascular: irregular, no murmur, no edema Vessels: no JVD or carotid bruit Chest: normal inspection of chest Abdomen: normal bowel sounds, soft, nontender, no hepatosplenomegaly Musculoskeletal: no cyanosis or clubbing, extremities motor strength 5/5 Skin: no rashes, warm and dry normal turgor Neurologic: PERRL, EOMI, accommodation nl, no face palsy, no dysarthria CN's II- XI intact bilaterally and moves all extremities Psychiatric: A+Ox3, euthymic affect Results & Data Results & Data Vital Signs (Past 12 Hours) Vital Signs Temp Pulse Resp BP Pulse Ox O2 Del Method 07/11/25 23:30 85 24 117/62 96 Room Air 07/11/25 23:00 74 16 111/69 97 Room Air 07/11/25 22:15 81 21 118/68 97 07/11/25 22:12 73 23 118/68 98 Room Air 07/11/25 22:11 66 07/11/25 22:03 123 H 18 151/107 H 98 Room Air 07/11/25 22:02 113 H 07/11/25 21:58 36.6 C 114 H 18 146/89 H 97 Room Air Code Status & VTE Plan VTE Prophylaxis Plan VTE Prophylaxis will be ordered: Yes
[2025-07-12] MEDS: METOPROLOL TARTRATE 25 MG TAB PO SCH (00:28)
[2025-07-12 06:21] LABS: Hematocrit (blood only) 40.1 % (42.0-52.0); Hemoglobin 14.4 g/dL (14.0-18.0); Immature Granulocytes # (auto) 0.03 K/uL (0.01-0.20); Immature Granulocytes % (auto) 0.4 %; Mean Corpuscular Hemoglobin 32.7 pg (25.0-34.0); Mean Corpuscular Volume 90.9 fL (80.0-100.0); Platelet Count 158 K/uL (130-400); RDW Standard Deviation 45.3 fL (36.4-46.3); Red Blood Count 4.41 M/uL (4.70-6.10); White Blood Count 6.71 K/ul (4.8-10.8)
[2025-07-12 06:58] LABS: Anion Gap 6.0 (3-11); Calcium 8.8 mg/dl (8.6-10.3); Carbon Dioxide 26.0 mmol/L (21-32); Chloride 109.0 mmol/L (98-107); Potassium 4.5 mmol/L (3.5-5.1); Sodium 141.0 mmol/L (136-145)
[2025-07-12 07:04] LABS: Blood Urea Nitrogen 16.0 mg/dl (6-23); Creatinine Clr Calc Pharmacy 75.8 ml/min; Glucose 102.0 mg/dl (70-99(Fasting))
[2025-07-12] MEDS: LOSARTAN POTASSIUM 50 MG TAB PO SCH (08:20)
[2025-07-12] MEDS: VITAMIN B COMPLEX TAB PO SCH (08:20)
[2025-07-12] MEDS: CHOLECALCIFEROL 25 MCG (1000 UNITS) TAB PO SCH (08:20)
[2025-07-12] MEDS: LORATADINE 10 MG TAB PO SCH (08:20)
[2025-07-12] MEDS: ASPIRIN 81 MG ECTAB PO SCH (08:20)
[2025-07-12] MEDS: IPRATROPIUM BROMIDE NASAL SPRAY 0.03% 30 ML SCH (08:21)
[2025-07-12] MEDS: ACETAMINOPHEN 325 MG TAB PO PRN (08:25)
[2025-07-12] MEDS ORDERED: NON-FORMULARY MEDICATION (Coenzyme Q10 100 mg Capsule) PO SCH (09:00)
[2025-07-12] MEDS: ROSUVASTATIN CALCIUM 5 MG TAB PO SCH (10:28)
--- NOTE | 2025-07-12 11:52 | XCELERA ---
[id number]
--- NOTE | 2025-07-12 12:04 | Cardiology Consultation ---
Date of Consultation July 12, 2025 Assessment & Plan (1) Atrial fibrillation with rapid ventricular response: (2) PSVT (paroxysmal supraventricular tachycardia): (3) High cholesterol: Plan -HR well controlled, he converted to normal sinus rhythm at approximately 1203 today -BP currently well controlled - Echo did indicate normal ejection fraction but there was some mild to moderate hypokinesis of the basal anteroseptal wall - Given the new onset dysrhythmia I would recommend therapeutic anticoagulation with apixaban 5 mg twice daily, he was agreeable to this - Continue rosuvastatin, losartan - Can transition to Toprol 25 mg daily, I did discuss with him if he has an episode of severe palpitations it would be reasonable to take an extra 25 mg dose as needed -Given the abnormal echo would recommend an ischemic evaluation will coordinate nuclear stress test for tomorrow, n.p.o. after midnight please do not allow him to have any additional caffeine today Case discussed with Dr. Nuñez. Please see attestation for additional recommendations. REYNOLD Cabral Department of Cardiology, [facility] This chart was completed in part utilizing Speech Voice Recognition Software. Grammatical errors, random word insertions, pronoun errors, and incomplete s entences are an occasional consequence of this system due to software limitations, ambient noise, and hardware issues. Any formal questions or concerns about the content, text, or information contained within the body of this dictation should be directly addressed to the provider for clarification. Supervising Physician Co-Signing Physician Notes Patient seen and examined. Past medical history, surgical history, social history and family history have been reviewed. The medical record and all the above studies have been reviewed. Case DW DEON including management. IMP: PAFib with RVR -> NSR HTN HLD ECHO - Normal LVEF, mild to moderate hypokinesis of the basal anteroseptal wall Recommendations: Nuclear stress test in AM NPO post MN Eliquis 5mg po bid Continue statin start Metoprolol xl 25mg po qd continue Losartan correct and f/u electrolytes f/u renal function adjust rate control meds keeping HR between 60 to 100 BPM and systolic BP between 100-140 mmHg adjust anti-HTN meds keeping systolic BP between 100-140 mmHg avoid hypovolemia keep patient euvolemic DVT prophylaxis salt restriction counseling History of Present Illness Reason for Consultation: A Fib Requesting Physician: Hospitalist Attending Physician: Fede Lassiter MD History of Present Illness The consultation today in regard to atrial fibrillation. He presented to the emergency room reporting palpitations that started a few hours prior to presentation. On presentation he was found to be tachycardic with atrial fibrillation. Does have a remote history of PAF with most recent episode back in 2012. He has been on nadolol for many years dating back to his pSVT. History includes hyperlipidemia, paroxysmal SVT, hypertension, RLS, and Gilbert disease. He was given bolus of IV diltiazem which did help improve his rate. Allergies Allergy/AdvReac Type Severity Reaction Status Date / Time pollen extracts Allergy Mild RUNNY NOSE Verified 07/11/25 22:51 doxycycline AdvReac Severe sun Verified 07/11/25 22:51 sensative amoxicillin AdvReac Intermediate GI SYMPTOMS Verified 07/11/25 22:51 atorvastatin AdvReac Intermediate NAUSEA/VOMI Verified 07/11/25 22:51 TING pravastatin AdvReac Intermediate NAUSEA/VOMI Verified 07/11/25 22:51 TING sulfamethoxazole AdvReac Intermediate GI SYMPTOMS Verified 07/11/25 22:51 trimethoprim AdvReac Intermediate GI SYMPTOMS Verified 07/11/25 22:51 Home Medications Medication Instructions Recorded Confirmed Type aspirin 81 mg tablet,delayed 81 mg PO QAM 06/20/18 07/11/25 History release (Gurjit Low Dose Aspirin) cholecalciferol (vitamin D3) 50 2,000 unit PO QAM 06/20/18 07/11/25 History mcg (2,000 unit) tablet (Vitamin D3) ipratropium bromide 21 mcg (0.03 2 spray intranasal TID 06/20/18 07/11/25 History %) nasal spray loratadine 10 mg tablet 10 mg PO QAM 06/20/18 07/11/25 History nadolol 40 mg tablet 60 mg PO DAILY 06/20/18 07/11/25 History vitamin B complex 1 tab PO QAM 06/20/18 07/11/25 History losartan 50 mg tablet 50 mg PO QAM #90 tabs 03/05/19 07/11/25 Rx coenzyme Q10 100 mg capsule 100 mg PO DAILY 07/11/25 07/11/25 History garlic 1,000 mg capsule 1,000 mg PO DAILY 07/11/25 07/11/25 History icosapent ethyl 0.5 gram capsule 1 g PO BIDM 07/11/25 07/11/25 History meloxicam 7.5 mg tablet 7.5 - 15 mg PO DAILY PRN Severe 07/11/25 07/11/25 History Pain (Scale Score 7-10) rosuvastatin 5 mg tablet 5 mg PO 4XWK 07/11/25 07/11/25 History trazodone 50 mg tablet 75 mg PO HS 07/11/25 07/11/25 History Patient History Family History (Updated 06/20/18 @ 08:49 by Dunia Mishra RN) Father Family history of diabetes mellitus Social History Smoking Status: Never smoker Do You Dip or Chew Tobacco: No; Hx Alcohol Use: No Hx Substance Use: No Preferred Language: Mohawk Communication Ability: Effective [employer] Required: No Beliefs That Will Affect Care: None Current Living Situation: Spouse Feels Safe at Home: Yes Safety Concerns: Feels Safe At This Time Assistive Devices: Glasses Review of Systems Review of Systems: All systems reviewed & are unremarkable except as noted in HPI & below Physical Exam Constitutional: WD/WN, vitals as above well developed and well nourished; not ill appearing Eyes: PERRL, conjunctivae normal, anicteric sclerae Neck: trachea midline, no thyromegaly Respiratory: normal respiratory effort, lungs clear to auscultation Cardiovascular: Rate/Rhythm: regular rate and + irregularly irregular Vessels: no JVD Extremities: no edema Gastrointestinal (Abdomen): normal bowel sounds, soft, nontender, no hepatosplenomegaly Skin: no rashes, warm and dry Results & Data Vital Signs (Past 12 Hours) Vital Signs Temp Pulse Pulse Resp BP BP Pulse Ox 07/12/25 10:58 36.5 C 84 21 106/72 96 07/12/25 07:58 36.5 C 74 22 111/73 96 07/12/25 07:36 65 07/12/25 05:01 61 07/12/25 04:33 36.4 C L 79 22 99/61 L 95 07/12/25 00:59 36.5 C 82 22 121/71 97 07/12/25 00:47 36.5 C 82 22 121/71 97 07/12/25 00:46 36.5 C 82 22 121/71 97 07/12/25 00:45 106 H 07/12/25 00:00 82 22 112/69 96 O2 Del Method 07/12/25 10:58 Room Air 07/12/25 07:58 Room Air 07/12/25 07:36 07/12/25 05:01 07/12/25 04:33 Room Air 07/12/25 00:59 Room Air 07/12/25 00:47 Room Air 07/12/25 00:46 Room Air 07/12/25 00:45 07/12/25 00:00 Room Air Laboratory Results Cardiac Enzymes 07/11/25 Range/Units 22:05 AST 33 (13-39) U/L Troponin I High Sens 4.9 (0-20) pg/ml Coagulation 07/11/25 Range/Units 22:05 PT 10.7 (9.0-12.0) Seconds APTT 25 (21-31) Seconds CBC 07/11/25 07/12/25 Range/Units 22:05 05:35 WBC 9.85 6.71 (4.8-10.8) K/ul RBC 4.74 4.41 L (4.70-6.10) M/uL Hgb 16.0 14.4 (14.0-18.0) g/dL Hct 43.3 40.1 L (42.0-52.0) % Plt Count 220 158 (130-400) K/uL Neut # (Auto) 4.82 3.15 (1.40-6.50) K/uL Lymph # (Auto) 4.00 H 2.90 (1.20-3.40) K/uL [place]imes # (Auto) 0.73 H 0.49 (0.11-0.59) K/uL Eos # (Auto) 0.21 0.11 (0.00-0.50) K/uL Baso # (Auto) 0.05 0.03 (0.00-0.20) K/uL Comprehensive Metabolic Panel 07/11/25 07/12/25 Range/Units 22:05 05:35 Sodium 138 141 (136-145) mmol/L Potassium 4.3 4.5 (3.5-5.1) mmol/L Chloride 104 109 H (98-107) mmol/L Carbon Dioxide 27 26 (21-32) mmol/L BUN 18 16 (6-23) mg/dl Creatinine 1.17 1.03 (0.6-1.4) mg/dl Glucose 122 H 102 H (70-99(Fasting)) mg/dl Calcium 9.2 8.8 (8.6-10.3) mg/dl AST 33 (13-39) U/L ALT 31 (7-52) U/L Alkaline Phosphatase 63 (34-104) U/L Total Protein 7.3 (6.0-8.3) gm/dl Albumin 4.7 (3.4-5.0) gm/dl Intake and Output 07/11/25 07/12/25 07/12/25 22:59 06:59 14:59 Intake Total 500 / 500 0 / 500 120 / 120 Balance 500 / 500 0 / 500 120 / 120 Intake: IV 500 / 500 Sodium Chloride 0.9% 500 ml @ 500 / 500 999 mls/hr IV .Q31M ONE Rx#: [id number] Oral 0 / 0 120 / 120 Other: Other Intake Source NPO # Unmeasured Voids 1 1 Weight 82.2 kg 80.8 kg Weight Measurement Method Chair Scale Standing Scale Diagnostic Findings Laboratory Results WBC 6.71 K/ul (4.8-10.8) 07/12/25 05:35 RBC 4.41 M/uL (4.70-6.10) L 07/12/25 05:35 Hgb 14.4 g/dL (14.0-18.0) 07/12/25 05:35 Hct 40.1 % (42.0-52.0) L 07/12/25 05:35 MCV 90.9 fL (80.0-100.0) 07/12/25 05:35 MCH 32.7 pg (25.0-34.0) 07/12/25 05:35 MCHC 35.9 g/dL (32.0-36.0) 07/12/25 05:35 RDW Std Deviation 45.3 fL (36.4-46.3) 07/12/25 05:35 RDW Coeff of [place] 13.6 % (11.5-14.5) 07/12/25 05:35 Plt Count 158 K/uL (130-400) 07/12/25 05:35 MPV 10.4 fL (9.4-12.4) 07/12/25 05:35 Immature Gran % (Auto) 0.4 % 07/12/25 05:35 Neut % (Auto) 47.1 % 07/12/25 05:35 Lymph % (Auto) 43.2 % 07/12/25 05:35 Grimes % (Auto) 7.3 % 07/12/25 05:35 Eos % (Auto) 1.6 % 07/12/25 05:35 Baso % (Auto) 0.4 % 07/12/25 05:35 Neut # (Auto) 3.15 K/uL (1.40-6.50) 07/12/25 05:35 Lymph # (Auto) 2.90 K/uL (1.20-3.40) 07/12/25 05:35 [place] # (Auto) 0.49 K/uL (0.11-0.59) 07/12/25 05:35 Eos # (Auto) 0.11 K/uL (0.00-0.50) 07/12/25 05:35 Baso # (Auto) 0.03 K/uL (0.00-0.20) 07/12/25 05:35 Immature Gran # (Auto) 0.03 K/uL (0.01-0.20) 07/12/25 05:35 PT 10.7 Seconds (9.0-12.0) 07/11/25 22:05 INR 1.0 (0.9-1.1) 07/11/25 22:05 APTT 25 Seconds (21-31) 07/11/25 22:05 PTT Ratio 0.9 07/11/25 22:05 Sodium 141 mmol/L (136-145) 07/12/25 05:35 Potassium 4.5 mmol/L (3.5-5.1) 07/12/25 05:35 Chloride 109 mmol/L (98-107) H 07/12/25 05:35 Carbon Dioxide 26 mmol/L (21-32) 07/12/25 05:35 Anion Gap 6 (3-11) 07/12/25 05:35 BUN 16 mg/dl (6-23) 07/12/25 05:35 Creatinine 1.03 mg/dl (0.6-1.4) 07/12/25 05:35 Est Cr Clr Drug Dosing 75.8 ml/min 07/12/25 05:35 eGFR 81.62 07/12/25 05:35 BUN/Creatinine Ratio 15.5 (10-20) 07/12/25 05:35 Glucose 102 mg/dl (70-99(Fasting)) H 07/12/25 05:35 Calcium 8.8 mg/dl (8.6-10.3) 07/12/25 05:35 Magnesium 2.2 mg/dl (1.7-2.4) 07/11/25 22:05 Total Bilirubin 2.6 mg/dl (0.2-1.0) H 07/11/25 22:05 AST 33 U/L (13-39) 07/11/25 22:05 ALT 31 U/L (7-52) 07/11/25 22:05 Alkaline Phosphatase 63 U/L (34-104) 07/11/25 22:05 Troponin I High Sens 4.9 pg/ml (0-20) 07/11/25 22:05 Total Protein 7.3 gm/dl (6.0-8.3) 07/11/25 22:05 Albumin 4.7 gm/dl (3.4-5.0) 07/11/25 22:05 Globulin 2.6 gm/dl (2.5-4.0) 07/11/25 22:05 Albumin/Globulin Ratio 1.8 (0.9-2) 07/11/25 22:05 TSH 3.824 uIu/ml (0.300-4.500) 07/11/25 22:05 Medications Administered Current Inpatient Medications Acetaminophen (Acetaminophen 325 Mg Tab) 650 mg PO Q4H PRN PRN Reason: Pain or Fever Stop: 08/10/25 23:45 Last Admin: 07/12/25 08:25 Dose: 650 mg Al Hydrox/Mg Hydrox/Simethicone (Aluminum/Magnesium Susp 30 Ml Udc) 15 ml PO Q4H PRN PRN Reason: Dyspepsia Stop: 08/10/25 23:45 Aspirin (Aspirin 81 Mg Ectab) 81 mg PO QAM [facility] Stop: 08/11/25 08:59 Last Admin: 07/12/25 08:20 Dose: 81 mg Enoxaparin Sodium (Enoxaparin Inj 40 Mg/0.4 Ml Syr) 40 mg SQ Q24H [facility] Stop: 08/11/25 20:59 Ipratropium [place] (Ipratropium [place] Nasal [place] 0.03% 30 Ml) 2 sprays NA TID [facility] Stop: 08/11/25 08:59 Last Admin: 07/12/25 08:21 Dose: 2 sprays [facility]atadine ([facility] 10 Mg Tab) [facility]: 08/11/25 08:59 Last Admin: 07/12/25 08:20 Dose: 10 mg Losartan Potassium (Losartan Potassium 50 Mg Tab) [facility] Stop: 08/11/25 08:59 Last Admin: 07/12/25 08:20 Dose: 50 mg Metoprolol Tartrate (Metoprolol Tartrate 25 Mg Tab) 25 mg PO Q6 [facility] Stop: 08/10/25 23:44 Last Admin: 07/12/25 11:17 Dose: 25 mg Rosuvastatin Calcium (Rosuvastatin Calcium 5 Mg Tab) 5 mg PO SuTuThSa@0900 [facility] Stop: 08/11/25 08:59 Last Admin: 07/12/25 10:28 Dose: Not Given Trazodone HCl (Trazodone Hcl 50 Mg Tab) 75 mg PO HS [facility] Stop: 08/11/25 00:56 Last Admin: 07/12/25 01:29 Dose: 75 mg Vitamin B Complex (Vitamin B Complex Tab) [address] [facility] Stop: 08/11/25 08:59 Last Admin: 07/12/25 08:20 Dose: 1 tab Vitamin D (Cholecalciferol 25 Mcg (1000 Units) Tab) [facility] Stop: 08/11/25 08:59 Last Admin: 07/12/25 08:20 Dose: 50 mcg PG Care Time/CCT Total # of Minutes Spent Total Time Spent with Patient: Total time spent is greater than 50% in coordination of care (as documented) at patient's floor/unit and/or counseling patient: Coding [place] [address] IN/OBS CONSULT LVL 4,60M Patient Type Established Medical Decision Making Moderate Complexity Diagnoses Atrial fibrillation with rapid ventricular response I48.91 PSVT (paroxysmal supraventricular tachycardia) I47.1 High cholesterol E78.00
--- NOTE | 2025-07-12 13:40 | Hospitalist Progress Note ---
Date of Service July 12, 2025 Assessment & Plan (1) Atrial fibrillation with rapid ventricular response: Plan: 65-year-old male with PMH of HLD, paroxysmal A-fib, PSVT, HTN, restless leg syndrome, HTN, Gilbert's disease presents to the hospital with complaint of palpitation. He is being managed for the following: A-fib with RVR Patient presents with palpitation. Remote history of A-fib in 2022. History of PSVT EKG on admission shows atrial fibrillation with RVR; was given Cardizem in the ED. [id number] score of 1(secondary to hypertension) ECHO w/ EF of 50-55%, LV size, systolic function wnl. Mild to mod hypokinesis of the basal anteroseptum wall noted. c/w metoprolol tartrate 25 mg every 6 hours; hold home nadolol. Continue aspirin given [id number] score of 1; will appreciate cardiology input regarding long-term anticoagulation and medication recommendation. Continue telemonitoring d/w cardio plan for stress test edwardo, await further recs NPO midnight. Hyperlipidemiacontinue on rosuvastatin 5 mg 4 days a week. Hypertensioncontinue losartan. Hold nadolol Gilbert syndrome- mild elevation on bilirubin noted. monitor Full code DVT lovenox Please note the above document was generated using voice recognition software. It may contain grammatical, syntax or spelling errors. Any formal questions or concerns about the content, text or information contained within the body of this dictation should be directly addressed to the provider for clarification Admission and Anticipated Discharge Date Admission Date: July 11, 2025 Subjective Patient was seen and examined at bedside. Patient was lying in bed, on room air, NAD, resting comfortably. Patient denies any chest pain or shortness of breath. Patient reports improvement in his palpitation. Physical Exam Physical Exam: Constitutional: NAD,on RA, pleasant, conversing easily Respiratory: normal respiratory effort, lungs clear to auscultation, no wheeze, rales, rhonchi. Normal insp/exp effort, no accessory muscle use Cardiovascular: irregular, rate under control, no murmur, no edema Vessels: no JVD or carotid bruit Chest: normal inspection of chest Abdomen: normal bowel sounds, soft, nontender, no hepatosplenomegaly Musculoskeletal: no cyanosis or clubbing, extremities motor strength 5/5 Skin: no rashes, warm and dry normal turgor Neurologic: PERRL, EOMI, accommodation nl, no face palsy, no dysarthria CN's II- XI intact bilaterally and moves all extremities Psychiatric: A+Ox3, euthymic affect Results & Data Results & Data Vital Signs (Past 12 Hours) Vital Signs Temp Pulse Pulse Resp BP Pulse Ox O2 Del Method 07/12/25 10:58 36.5 C 84 21 106/72 96 Room Air 07/12/25 07:58 36.5 C 74 22 111/73 96 Room Air 07/12/25 07:36 65 07/12/25 05:01 61 07/12/25 04:33 36.4 C L 79 22 99/61 L 95 Room Air
[2025-07-12] MEDS: METOPROLOL SUCC 25MG EXT REL TAB PO SCH (15:01)
[2025-07-12] MEDS ORDERED: ENOXAPARIN INJ 40 MG/0.4 ML SYR SQ SCH (21:00)
[2025-07-12] MEDS: APIXABAN 5 MG TABLET PO SCH (21:22)
[2025-07-13 08:11] LABS: Hematocrit (blood only) 43.2 % (42.0-52.0); Hemoglobin 15.7 g/dL (14.0-18.0); Mean Corpuscular Hemoglobin 33.2 pg (25.0-34.0); Mean Corpuscular Volume 91.3 fL (80.0-100.0); Platelet Count 171 K/uL (130-400); RDW Standard Deviation 46.4 fL (36.4-46.3); Red Blood Count 4.73 M/uL (4.70-6.10); White Blood Count 6.18 K/ul (4.8-10.8)
[2025-07-13 08:31] LABS: Anion Gap 5.0 (3-11); Blood Urea Nitrogen 18.0 mg/dl (6-23); Calcium 9.3 mg/dl (8.6-10.3); Carbon Dioxide 28.0 mmol/L (21-32); Chloride 106.0 mmol/L (98-107); Creatinine Clr Calc Pharmacy 66.2 ml/min; Glucose 112.0 mg/dl (70-99(Fasting)); Magnesium 2.1 mg/dl (1.7-2.4); Potassium 4.4 mmol/L (3.5-5.1); Sodium 139.0 mmol/L (136-145)
--- NOTE | 2025-07-13 10:56 | Electrocardiogram Report ---
Test Reason : Blood Pressure : */* mmHG Vent. Rate : 118 BPM Atrial Rate : * BPM P-R Int : * ms QRS Dur : 74 ms QT Int : 306 ms P-R-T Axes : * 0 59 degrees QTcB Int : 428 ms Atrial fibrillation with rapid ventricular response Abnormal ECG When compared with ECG of 21-Jun-2018 09:00, Atrial fibrillation has replaced Sinus rhythm Vent. rate has increased by 58 bpm Confirmed by Isha Yates ([id number]) on 07/13/2025 10:56:14 AM Referred By: REFERRED SELF Confirmed By: Isha Yates
--- NOTE | 2025-07-13 11:09 | Electrocardiogram Report ---
Test Reason : Blood Pressure : */* mmHG Vent. Rate : 52 BPM Atrial Rate : * BPM P-R Int : * ms QRS Dur : 76 ms QT Int : 384 ms P-R-T Axes : * 11 54 degrees QTcB Int : 357 ms Atrial fibrillation with slow ventricular response Abnormal ECG When compared with ECG of 11-Jul-2025 22:03, (unconfirmed) Vent. rate has decreased by 66 bpm Confirmed by Isha Yates ([id number]) on 07/13/2025 11:09:13 AM Referred By: REFERRED SELF Confirmed By: Isha Yates
--- NOTE | 2025-07-13 14:16 | Cardiology Progress Note ---
Date of Service July 13, 2025 Assessment & Plan (1) Atrial fibrillation with rapid ventricular response: (2) PSVT (paroxysmal supraventricular tachycardia): (3) High cholesterol: Plan 65-year-old male admitted with recurrent atrial fibrillation and rapid ventricular response. Spontaneously converted to normal sinus rhythm yesterday. Echocardiogram personally reviewed demonstrating preserved LV systolic function. Further risk stratification recommended due to possible basal anteroseptal wall motion abnormality. Patient feels he could ambulate adequately for stress testing. Recommend exercise stress echo for further restratification. Further recommendations rita horvath review of stress test result. Win Lundy DO [facility] Admission and Anticipated Discharge Date Admission Date: July 11, 2025 Subjective 65-year-old male seen and examined at the bedside. No palpitations, chest discomfort, or unusual shortness of breath. Remains in sinus rhythm on telemetry. N.p.o. for nuclear stress test, however, currently he is not a nuclear stress testing schedule and there is no dose available today. Feels he would be able to ambulate adequately on treadmill for further testing. present at bedside. Offers no additional concerns/complaints. Patient reports long history of atrial fibrillation dating back to 1994. Review of Systems Review of Systems: All systems reviewed & are unremarkable except as noted in Subjective Physical Exam Constitutional: well nourished; no acute distress Respiratory: no respiratory distress and no labored breathing Auscultation: lungs clear to auscultation bilaterally; no crackles, no rales, no rhonchi and no wheezes Cardiovascular: Rate/Rhythm: regular rate and regular rhythm Heart Sounds: normal S1 and normal S2; no murmur Vessels: radial pulses present; no JVD and no carotid bruit Extremities: no edema Gastrointestinal (Abdomen): Inspection/Auscultation: abdomen normal to inspect ion and normal bowel sounds; abdomen not distended Percussion/Palpation: abdomen soft; abdomen nontender, no guarding and abdomen not rigid Neurologic: CN's II-XI intact bilaterally and moves all extremities; no focal motor deficits Results & Data Vital Signs (Past 12 Hours) Vital Signs Temp Pulse Pulse Resp BP Pulse Ox O2 Del Method 07/13/25 07:44 36.7 C 64 18 127/84 97 Room Air 07/13/25 07:30 70 07/13/25 02:55 36.4 C L 63 16 102/63 92 Room Air Laboratory Results CBC 07/13/25 Range/Units 07:46 WBC 6.18 (4.8-10.8) K/ul RBC 4.73 (4.70-6.10) M/uL Hgb 15.7 (14.0-18.0) g/dL Hct 43.2 (42.0-52.0) % Plt Count 171 (130-400) K/uL Comprehensive Metabolic Panel 07/13/25 Range/Units 07:46 Sodium 139 (136-145) mmol/L Potassium 4.4 (3.5-5.1) mmol/L Chloride 106 (98-107) mmol/L Carbon Dioxide 28 (21-32) mmol/L BUN 18 (6-23) mg/dl Creatinine 1.18 (0.6-1.4) mg/dl Glucose 112 H (70-99(Fasting)) mg/dl Calcium 9.3 (8.6-10.3) mg/dl Intake and Output 07/12/25 07/13/25 07/13/25 22:59 06:59 14:59 Intake Total 360 / 600 Balance 360 / 600 Intake: Oral 360 / 600 Other: Other Intake Source NPO # Unmeasured Voids 1 1 Weight 77.6 kg Weight Measurement Method Built in [facility] PG Care Time/CCT Total # of Minutes Spent Total Time Spent with Patient: Total time spent is greater than 50% in coordination of care (as documented) at patient's floor/unit and/or counseling patient: Coding Level of Care Code 23626 SUB INP/OBS CARE 3/50MIN Diagnoses Atrial fibrillation with rapid ventricular response I48.91 PSVT (paroxysmal supraventricular tachycardia) I47.1 High cholesterol E78.00
--- NOTE | 2025-07-13 14:50 | Electrocardiogram Report ---
Test Reason : Blood Pressure : */* mmHG Vent. Rate : 64 BPM Atrial Rate : 64 BPM P-R Int : 174 ms QRS Dur : 78 ms QT Int : 378 ms P-R-T Axes : 45 -11 52 degrees QTcB Int : 389 ms Normal sinus rhythm Normal ECG When compared with ECG of 12-Jul-2025 06:28, (unconfirmed) Sinus rhythm has replaced Atrial fibrillation Confirmed by Kevin Maier ([id number]) on 07/13/2025 2:49:38 PM Referred By: REFERRED SELF Confirmed By: Kevin Maier
[2025-07-13 16:24] VITALS: BP 116/72; PULSE 84; RESP 16; TEMP 97.9; O2SAT 94
--- NOTE | 2025-07-13 16:24 | XCELERA ---
[id number]
--- NOTE | 2025-07-13 17:14 | Discharge Summary ---
Date of Service July 13, 2025 Admission HPI Per Admitting Provider History obtained from chart review, interview with the patient and discussion with ED provider Past medical history include hyperlipidemia, paroxysmal A-fib, PSVT, hypertension, restless leg syndrome, hypertension, gilbert disease He has remote history of atrial fibrillation; in 2022. Patient presented to the hospital with palpitation. He reports that around 8 PM, he started to have palpitation. He denies any chest pain, shortness of breath, dizziness, fever, chills no changes in his medication. Last outpatient EKG from January 2025shows sinus bradycardia with rate of 53. No recent echo seen On presentation to the ED, he was normotensive, tachycardic, saturating well on room air. EKG on admission showed atrial fibrillation with RVR. Patient was given Cardizem 20 mg which slowed the ventricular rate down to 70s; was referred to admission Admission Exam Per Admitting Provider Constitutional: WD/WN, vitals as above, NAD, sitting up in bed, pleasant, conversing easily Respiratory: normal respiratory effort, lungs clear to auscultation, no wheeze, rales, rhonchi. Normal insp/exp effort, no accessory muscle use Cardiovascular: irregular, no murmur, no edema Vessels: no JVD or carotid bruit Chest: normal inspection of chest Abdomen: normal bowel sounds, soft, nontender, no hepatosplenomegaly Musculoskeletal: no cyanosis or clubbing, extremities motor strength 5/5 Skin: no rashes, warm and dry normal turgor Neurologic: PERRL, EOMI, accommodation nl, no face palsy, no dysarthria CN's II- XI intact bilaterally and moves all extremities Psychiatric: A+Ox3, euthymic affect Principal Diagnosis A-fib with RVR Discharge Exam Constitutional: NAD,on RA, pleasant, conversing easily Respiratory: normal respiratory effort, lungs clear to auscultation, no wheeze, rales, rhonchi. Normal insp/exp effort, no accessory muscle use Cardiovascular: regular, rate under control, no murmur, no edema Vessels: no JVD or carotid bruit Chest: normal inspection of chest Abdomen: normal bowel sounds, soft, nontender, no hepatosplenomegaly Musculoskeletal: no cyanosis or clubbing, extremities motor strength 5/5 Skin: no rashes, warm and dry normal turgor Neurologic: PERRL, EOMI, accommodation nl, no face palsy, no dysarthria CN's II- XI intact bilaterally and moves all extremities Psychiatric: A+Ox3, euthymic affect Discharge Data Allergies Allergy/AdvReac Type Severity Reaction Status Date / Time pollen extracts Allergy Mild RUNNY NOSE Verified 07/11/25 22:51 doxycycline AdvReac Severe sun Verified 07/11/25 22:51 sensative amoxicillin AdvReac Intermediate GI SYMPTOMS Verified 07/11/25 22:51 atorvastatin AdvReac Intermediate NAUSEA/VOMI Verified 07/11/25 22:51 TING pravastatin AdvReac Intermediate NAUSEA/VOMI Verified 07/11/25 22:51 TING sulfamethoxazole AdvReac Intermediate GI SYMPTOMS Verified 07/11/25 22:51 trimethoprim AdvReac Intermediate GI SYMPTOMS Verified 07/11/25 22:51 Consultations 07/11/25 23:34 ED Decision to Admit Stat 07/12/25 08:00 Consult Cardiology Routine Hospital Course (1) Atrial fibrillation with rapid ventricular response: 65-year-old male with PMH of HLD, paroxysmal A-fib, PSVT, HTN, restless leg syndrome, HTN, Gilbert's disease presents to the hospital with complaint of palpitation. He is being managed for the following: A-fib with RVR Patient presents with palpitation. Remote history of A-fib in 2022. History of PSVT EKG on admission shows atrial fibrillation with RVR; was given Cardizem in the ED. [id number] score of 1(secondary to hypertension) ECHO w/ EF of 50-55%, LV size, systolic function wnl. Mild to mod hypokinesis of the basal anteroseptum wall noted. s/p nl stress echo d/w cardio, nadolol dc'd, aspirin dc'd, started on metoprolol and eliquis. pt given eliquis coupon. f/u cardio as OP. HR is sinus. Hyperlipidemiacontinue on rosuvastatin 5 mg 4 days a week. Hypertensioncontinue losartan. Hold nadolol Gilbert syndrome- mild elevation on bilirubin noted. monitor Full code DVT lovenox Patient is being discharged to home with following instructions at the point of discharge: Follow-up with your primary care physician within a week time and likely you will need labs CBC/CMP/magnesium/phosphorus. Cardiology evaluated you, you have been started on Eliquis and your nadolol has been stopped and you have been started on metoprolol. Follow-up with cardiology in 1 to 2 months time of discharge. Take your medications as prescribed. Please make sure that you are able to get your medications today by calling your pharmacy before you leave the hospital so that your treatment continuity is not broken. Please note the above document was generated using voice recognition software. It may contain grammatical, syntax or spelling errors. Any formal questions or concerns about the content, text or information contained within the body of this dictation should be directly addressed to the provider for clarification Home Health Attestation I certify that this patient is under my care and that I, or a physicians bankruptcy legal assistant working with me, had a face to-face encounter that meets the home health [id number] encounter requirements with this patient. The encounter with the patient was in whole, or in part, for the following medical condition, which is the primary reason for home health care (list medical condition): I certify that, based on my findings, the following services are medically necessary home health services: My clinical findings support the need for the above services because: Further, I certify that my clinical findings support that this patient is homebound (i.e. absences from home require considerable and taxing effort and are for medical reasons or rastafarian services or infrequently or of short duration when for other reasons) because: Certification for Home Health Services: Based on the above findings, I certify that this patient is confined to the home and needs intermittent residential care, physical therapy and/or speech therapy or continues to need occupational therapy. The patient is under my care, and I have initiated the establishment of the plan of care. This patient will be followed by a physician who will periodically review the plan of care. Total Time Total Time Spent Total Time Spent (In Minutes): 40 Discharge Plan Discharge Items Patient Disposition: Home - Self-Care Reason For Visit: A.FIB WITH RVR Discharge Diagnosis: A-fib with RVR Condition on Discharge: Good Activity: Resume your previous activity Non-emergency contact: Primary Care Provider Call non-emergency contact if: you have any medication questions and your symptoms worsen Follow-up/Referrals: Gary Krueger MD [Primary Care Provider] - (Date & Time 07/20/2025 11:40 AM Provider: Ricardo Sierra DO General Internal Medicine [facility] ) Diet: Heart Healthy Addtl Attending Provider Instructions: Follow-up with your primary care physician within a week time and likely you will need labs CBC/CMP/magnesium/phosphorus. Cardiology evaluated you, you have been started on Eliquis and your nadolol has been stopped and you have been started on metoprolol. Follow-up with cardiology in 1 to 2 months time of discharge. Take your medications as prescribed. Please make sure that you are able to get your medications today by calling your pharmacy before you leave the hospital so that your treatment continuity is not broken. Pending Studies at Discharge: No Stand-Alone Forms: My [facility] Naked, Smoking Cessation Medications and DC Order Prescriptions: New Eliquis 5 mg Tablet 5 mg PO BID Qty: 60 0RF metoprolol succinate 25 mg Tablet Extended Release 24 Hr 25 mg PO QAM Qty: 30 0RF Continued losartan 50 mg tablet 50 mg PO QAM Qty: 90 3RF vitamin B complex Tablet 1 tab PO QAM ipratropium bromide 0.03 % [place],Non-Aerosol 2 spray INTRANASAL TID cholecalciferol (vitamin D3) [Vitamin D3] 2,000 unit Tablet 2,000 unit PO QAM loratadine 10 mg Tablet 10 mg PO QAM trazodone 50 mg tablet 75 mg PO HS garlic 1,000 mg Capsule 1,000 mg PO DAILY coenzyme Q10 [CoQ-10] 100 mg Capsule 100 mg PO DAILY rosuvastatin 5 mg tablet 5 mg PO 4XWK icosapent ethyl 0.5 gram capsule 1 g PO BIDM Discontinued aspirin [Gurjit Low Dose Aspirin] 81 mg Tablet,Delayed Release (Dr/Ec) 81 mg PO QAM nadolol 40 mg Tablet 60 mg PO DAILY meloxicam 7.5 mg tablet 7.5 - 15 mg PO DAILY PRN (Reason: Severe Pain (Scale Score 7-10)) Discharge Orders: Discharge Order (Routine); Ordered 07/13/25 Ordered By: Fede Lassiter Admission Data Admit Date/Time: 07/11/25 23:46 Attending Provider: Fede Lassiter Admit Provider: Clifton Yoo Primary Care Provider: Gary Krueger Other Providers: Clifton Yoo; Connie Woodson; Rafat Pinedo; Rajan Wallis; Win Lundy; Thuan Fallon.; Severino Anton; Kristine Altamirano; Georgia Cummings; Melissa Davidson; Cata Aguilar; Connie Abebe.; Jori Cantu.; Jonathan Alvarez; Sivan Ash; Aleyda Beaulieu; Dariela Walker; Manny Billings; Daniel Marc; Sushma Wallis; Carmella Arriaga; Jerson Nuñez; Alba Peacock
== END 2025-07-13 17:48 | disposition home or self-care (01) | DRG 309 ==
LOC: ED 21:55 → 2S 23:46